=== PATIENT | female | born 1965 | race American Indian/Alaskan Native ===

== ENCOUNTER 2016-03-28 15:51 | Emergency (ER) | payer OTHER ==
[2016-03-28 21:09] VITALS: BP 128/82
[2016-03-28] MEDS ORDERED: TORADOL IM ONE (21:45)
[2016-03-28] MEDS ORDERED: FLEXERIL PO ONE (21:45)
--- NOTE | 2016-03-28 22:32 | Emergency Department Report ---
HPI - General Chief Complaint: Headache Time Seen by Provider: 03/28/16 21:34 - HPI HPI: 50-year-old female presents today with headache 3 days. Patient states it is mostly towards her left side. Positive for history of similar headaches. Denies injury or trauma. Positive for history of hypertension and diabetes. Describes her pain as 9 on a 10 intermittent aching pain that is worse with neck movement. Tried Tylenol with relief. Denies nausea, vomiting, photosensitivity, vision change, dizziness, confusion, change in behavior. Denies fevers, chills, chest pain, shortness of breath, abdominal pain. ED Past Medical Hx - Past Medical History Hx Hypertension: Yes Hx Diabetes: Yes Hx Headaches / Migraines: Yes - Surgical History Past Surgical History?: No - Medications Home Medications: Home Medications Medication Instructions Recorded Confirmed Last Taken Type Cyclobenzaprine HCl [Flexeril 5 MG 5 mg PO TID #14 tab 03/28/16 Unknown Rx TAB] Naproxen [Naprosyn] 500 mg PO BID #20 tablet 03/28/16 Unknown Rx ED Review of Systems ROS: Stated complaint: HEADACHE/SORENESS LT SIDE Other details as noted in HPI Constitutional: denies: chills, fever, malaise Eyes: denies: eye pain, vision change ENT: denies: ear pain, throat pain, congestion Respiratory: denies: cough, shortness of breath, wheezing Cardiovascular: denies: chest pain, palpitations Endocrine: no symptoms reported Gastrointestinal: denies: abdominal pain, nausea, vomiting Skin: denies: rash Neurological: headache. denies: weakness, numbness, paresthesias, confusion Physical Exam - Physical Exam Vital Signs: Vital Signs 03/28/16 03/28/16 17:39 21:08 Temperature 98.8 F 97.9 F Pulse Rate 101 H 96 H Respiratory 18 18 Rate Blood Pressure 141/91 Blood Pressure 128/82 [Right] O2 Sat by Pulse 100 97 Oximetry Physical Exam: GENERAL: The patient is well-developed and well-nourished. Patient is in NAD. HEAD: Normocephalic. Atraumatic. No tenderness to palpation of scalp. EYES: Extraocular motions are intact, PERRL. EARS: External auditory canals and tympanic membranes clear; hearing grossly intact. NOSE: Normal nasal mucosa with no nasal discharge. THROAT: No erythema, swelling or exudates. NECK: Supple, nontender, without lymphadenopathy. No meningitic signs are noted. No midline tenderness. Minimal left-sided paraspinal tenderness to palpation. Full range of motion. CHEST/LUNGS: Clear to auscultation throughout. HEART/CARDIOVASCULAR: Regular rate and rhythm. ABDOMEN: Abdomen is soft, nontender. No guarding or rebound tenderness. EXTREMITIES: Peripheral pulses intact. Capillary refill less than 2 seconds. NEURO: Alert and oriented x 3. Normal gait. CN II-XII intact. Symmetrical strength and sensation. Negative Romberg and pronator drift. Cerebellar testing normal. GCS score of 15. ED Course Vital Signs 03/28/16 03/28/16 17:39 21:08 Temperature 98.8 F 97.9 F Pulse Rate 101 H 96 H Respiratory 18 18 Rate Blood Pressure 141/91 Blood Pressure 128/82 [Right] O2 Sat by Pulse 100 97 Oximetry ED Medical Decision Making - Lab Data Vital Signs 03/28/16 03/28/16 17:39 21:08 Temperature 98.8 F 97.9 F Pulse Rate 101 H 96 H Respiratory 18 18 Rate Blood Pressure 141/91 Blood Pressure 128/82 [Right] O2 Sat by Pulse 100 97 Oximetry - Medical Decision Making 50-year-old female presents today with headache 3 days that is worse with neck movement. Her neurological exam is unremarkable. Patient was given Flexeril and Toradol and reported symptomatic relief. Patient will be provided with a referral for neurologist. Patient is in no acute distress at this time. She will be discharged home and is encouraged to follow up with a primary care provider. She will be sent home on flexeril and naproxen and is encouraged to return to the emergency room for any worsening symptoms. Critical care attestation.: If time is entered above; I have spent that time in minutes in the direct care of this critically ill patient, excluding procedure time. ED Disposition Clinical Impression: Headache Qualifiers: Headache type: unspecified Headache chronicity pattern: acute headache Intractability: not intractable Qualified Code(s): R51 - Headache Cervical strain Qualifiers: Encounter type: initial encounter Qualified Code(s): S16.1XXA - Strain of muscle, fascia and tendon at neck level, initial encounter Disposition: DISCHARGED TO HOME OR SELFCARE Is pt being admited?: No Does the pt Need Aspirin: No Condition: Stable Instructions: Muscle Strain (ED), Acute Headache (ED) Additional Instructions: Follow-up with primary care provider. Return to the emergency department if symptoms worsen. Prescriptions: Cyclobenzaprine HCl [Flexeril 5 MG TAB] 5 mg PO TID #14 tab Naproxen [Naprosyn] 500 mg PO BID #20 tablet Referrals: PRIMARY CAREMD [Primary Care Provider] - 3-5 Days ANNIKA BULL MD [Staff Physician] - 3-5 Days [facility] [Outside] - 3-5 Days Forms: Work/School Release Form(ED), Accompanied Note Time of Disposition: 22:40
== END 2016-03-28 22:53 | disposition home or self-care (01) ==
LOC: ED 15:51
DX: S16.1XXA Strain of muscle, fascia and tendon at neck level, initial encounter (principal); I10 Essential (primary) hypertension; E11.9 Type 2 diabetes mellitus without complications; G43.909 Migraine, unspecified, not intractable, without status migrainosus; X58.XXXA Exposure to other specified factors, initial encounter; Y93.89 Activity, other specified; Y99.8 Other external cause status; Y92.89 Other specified places as the place of occurrence of the external cause
CPT/HCPCS: 96372; 99282; J1885